=== PATIENT | female | born 1970 | race Caucasian/White ===

== ENCOUNTER 2021-02-05 03:11 | Inpatient (IN) | payer SELFPAY ==
[~2021-02-05] VITALS: Ht 160 cm; Wt 73.1 kg
[2021-02-05] MEDS ORDERED: ALBUTEROL (0.083%) 2.5MG/3ML NEB HHN STA (03:31)
[2021-02-05] MEDS ORDERED: METHYLPREDNISOLONE SOD SUCC 125 MG/2 ML VIAL IV STA (03:31)
[2021-02-05] MEDS ORDERED: IPRATROPIUM BROMIDE (0.02%) 0.5MG/2.5ML NEB HHN STA (03:31)
[2021-02-05] MEDS ORDERED: MAGNESIUM 2 G PREMIX 50 ML IV STA (03:31)
[2021-02-05 04:08] LABS: HEMATOCRIT 45.3 % (36.0-48.0); HEMOGLOBIN 15.3 g/dL (12.0-16.0); MEAN CORPUSCULAR VOLUME 91.3 fL (81.0-99.0); PLATELET 311 x1000/uL (130-400); RED BLOOD CELL COUNT 4.95 mill/uL (4.2-5.4); RED CELL DISTRIBUTION WIDTH 14.6 % (11.6-14.6)
[2021-02-05 04:16] LABS: CHLORIDE 105 mEq/L (98-107)
[2021-02-05] MEDS ORDERED: MAGNESIUM/ALUMINUM HYDROXIDE/SIMETHICONE 30ML UDC PO PRN (07:45)
[2021-02-05] MEDS ORDERED: DOCUSATE SODIUM 100MG CAPSULE PO PRN (07:45)
[2021-02-05] MEDS ORDERED: CLONIDINE 0.1MG TABLET PO PRN (07:45)
[2021-02-05] MEDS ORDERED: IPRATROPIUM/ALBUTEROL 0.5-3(2.5)MG/3ML NEB NEB PRN (07:45)
[2021-02-05] MEDS ORDERED: DEXTROSE 50% WATER 50ML SYRINGE IV PRN (07:45)
[2021-02-05] MEDS ORDERED: ACETAMINOPHEN 325MG TABLET PO PRN ×2 (07:45)
[2021-02-05] MEDS ORDERED: ONDANSETRON HCL 4MG/2ML INJ IV PRN (07:45)
[2021-02-05 07:57] LABS: TOTAL IRON BINDING CAPACITY 369 ug/dL (250-450)
[2021-02-05] MEDS ORDERED: NITROGLYCERIN 0.4MG TABLET SL SL PRN (08:00)
[2021-02-05 08:13] LABS: FOLIC ACID (FOLATE) SERUM 17.4 ng/mL (>5.38)
[2021-02-05 09:00] VITALS: BP 141/83
[2021-02-05] MEDS ORDERED: LEVOFLOXACIN 500MG PREMIX 100 ML IV SCH (09:00)
[2021-02-05] MEDS: IPRATROPIUM/ALBUTEROL 0.5-3(2.5)MG/3ML NEB HHN SCH ×4 (09:09→21:35)
[2021-02-05] MEDS: ASPIRIN 325MG EC TABLET PO SCH (09:34)
[2021-02-05] MEDS: FAMOTIDINE 20MG TABLET PO SCH ×2 (09:35→20:34)
[2021-02-05] MEDS: ENOXAPARIN 40MG/0.4ML SYR SUBCUT SCH (09:36)
[2021-02-05] MEDS: INSULIN LISPRO 100 UNITS/ML SUBCUT SCH ×4 (09:46→20:35)
[2021-02-05 10:30] VITALS: BP 141/83
[2021-02-05] MEDS: BLOOD SUGAR DIAGNOSTIC STRIP TEST SCH ×3 (11:40→20:34)
[2021-02-05] MEDS ORDERED: ALBU2.5V13 NEB (11:53)
[2021-02-05] MEDS ORDERED: AZIT250T12 PO (11:53)
[2021-02-05] MEDS ORDERED: MONT10TA21 MT (11:53)
[2021-02-05] MEDS ORDERED: PRED10TA MT (11:53)
[2021-02-05] MEDS ORDERED: HYDR10TA34 MT (11:53)
[2021-02-05] MEDS ORDERED: ALBU6.7H15 INH (11:53)
[2021-02-05] MEDS ORDERED: ACET-2708 MT (11:53)
[2021-02-05] MEDS: DILTIAZEM HCL 30MG TABLET PO SCH ×2 (13:21→18:22)
[2021-02-05] MEDS: METHYLPREDNISOLONE SOD SUCC 125 MG/2 ML VIAL IV SCH ×2 (14:57→20:34)
[2021-02-05 16:52] VITALS: BP 128/66
[2021-02-05 17:53] LABS: CREATINE KINASE 296 IU/L (26-192)
[2021-02-05 17:54] LABS: CREATINE KINASE MB FRACTION 6.6 ng/mL (0.5-3.6)
[2021-02-05 20:00] VITALS: BP 132/81
[2021-02-05] MEDS: GUAIFENESIN 600MG ER TABLET PO SCH (20:34)
[2021-02-05] MEDS ORDERED: ZOLPIDEM TARTRATE 5MG TABLET PO PRN (21:00)
[2021-02-06] VITALS: BP 109/69
[2021-02-06 00:38] LABS: CREATINE KINASE 237 IU/L (26-192)
[2021-02-06 00:39] LABS: CREATINE KINASE MB FRACTION 6.1 ng/mL (0.5-3.6)
[2021-02-06] MEDS: IPRATROPIUM/ALBUTEROL 0.5-3(2.5)MG/3ML NEB HHN SCH ×6 (00:56→21:21)
[2021-02-06 04:00] VITALS: BP 143/65
[2021-02-06] MEDS: DILTIAZEM HCL 30MG TABLET PO SCH ×4 (04:59→17:17)
[2021-02-06] MEDS: METHYLPREDNISOLONE SOD SUCC 125 MG/2 ML VIAL IV SCH ×3 (05:02→21:28)
[2021-02-06] MEDS: INSULIN LISPRO 100 UNITS/ML SUBCUT SCH ×4 (06:10→21:27)
[2021-02-06] MEDS: BLOOD SUGAR DIAGNOSTIC STRIP TEST SCH ×4 (06:10→21:08)
[2021-02-06 07:03] LABS: HEMATOCRIT. 43.1 % (36.0-48.0); HEMOGLOBIN. 14.6 g/dL (12.0-16.0); MEAN CORPUSCULAR HEMOGLOBIN 31.2 pg (28.0-32.0); MEAN CORPUSCULAR VOLUME 91.9 fL (81.0-99.0); MEAN PLATELET VOLUME 7.1 fl (7.4-10.4); PLATELET 328 x1000/uL (130-400); RED BLOOD CELL COUNT 4.69 mill/uL (4.2-5.4); RED CELL DISTRIBUTION WIDTH 14.8 % (11.6-14.6)
[2021-02-06 07:31] LABS: CHLORIDE 108 mEq/L (98-107)
[2021-02-06 08:00] VITALS: BP 129/67
[2021-02-06] MEDS: ASPIRIN 325MG EC TABLET PO SCH (09:11)
[2021-02-06] MEDS: GUAIFENESIN 600MG ER TABLET PO SCH ×2 (09:11→21:27)
[2021-02-06] MEDS: FAMOTIDINE 20MG TABLET PO SCH (09:11)
[2021-02-06] MEDS: ENOXAPARIN 40MG/0.4ML SYR SUBCUT SCH (09:12)
[2021-02-06] MEDS: LEVOFLOXACIN 500MG PREMIX 100 ML IV SCH (11:46)
[2021-02-06 12:00] VITALS: BP 138/76
[2021-02-06 12:30] LABS: PLATELET ESTIMATE NORMAL
[2021-02-06 16:00] VITALS: BP 124/70
[2021-02-06] MEDS: GUAIFENESIN 200MG/10ML SUGAR FREE UDC PO PRN (17:42)
[2021-02-06 20:00] VITALS: BP 116/69
[2021-02-07] VITALS (7 sets, daily range): BP systolic 104–142; BP diastolic 57–76
[2021-02-07] MEDS: IPRATROPIUM/ALBUTEROL 0.5-3(2.5)MG/3ML NEB HHN SCH ×6 (00:52→21:06)
[2021-02-07] MEDS: FAMOTIDINE 20MG TABLET PO SCH ×3 (00:56→20:57)
[2021-02-07] MEDS: GUAIFENESIN 200MG/10ML SUGAR FREE UDC PO PRN (01:10)
[2021-02-07] MEDS: DILTIAZEM HCL 30MG TABLET PO SCH ×5 (01:14→23:32)
[2021-02-07] MEDS: BLOOD SUGAR DIAGNOSTIC STRIP TEST SCH ×4 (05:51→20:59)
[2021-02-07] MEDS: METHYLPREDNISOLONE SOD SUCC 125 MG/2 ML VIAL IV SCH ×3 (06:18→20:58)
[2021-02-07] MEDS: INSULIN LISPRO 100 UNITS/ML SUBCUT SCH ×4 (06:21→20:58)
[2021-02-07 06:42] LABS: PROTHROMBIN TIME 10.4 sec (9.6-11.0)
[2021-02-07] MEDS: ASPIRIN 325MG EC TABLET PO SCH (08:22)
[2021-02-07] MEDS: GUAIFENESIN 600MG ER TABLET PO SCH ×2 (08:22→20:56)
[2021-02-07] MEDS: ENOXAPARIN 40MG/0.4ML SYR SUBCUT SCH (08:23)
[2021-02-07] MEDS: LEVOFLOXACIN 500MG PREMIX 100 ML IV SCH (11:47)
[2021-02-08] VITALS: BP 124/66
[2021-02-08] MEDS: IPRATROPIUM/ALBUTEROL 0.5-3(2.5)MG/3ML NEB HHN SCH ×4 (00:46→12:58)
[2021-02-08 04:00] VITALS: BP 135/87
[2021-02-08] MEDS: METHYLPREDNISOLONE SOD SUCC 125 MG/2 ML VIAL IV SCH ×2 (06:05→14:59)
[2021-02-08] MEDS: DILTIAZEM HCL 30MG TABLET PO SCH ×2 (06:05→12:22)
[2021-02-08] MEDS: INSULIN LISPRO 100 UNITS/ML SUBCUT SCH ×2 (06:06→12:23)
[2021-02-08] MEDS: BLOOD SUGAR DIAGNOSTIC STRIP TEST SCH ×2 (06:08→12:24)
[2021-02-08 08:00] VITALS: BP 138/89
[2021-02-08] MEDS: ENOXAPARIN 40MG/0.4ML SYR SUBCUT SCH (08:29)
[2021-02-08] MEDS: GUAIFENESIN 600MG ER TABLET PO SCH (08:29)
[2021-02-08] MEDS: ASPIRIN 325MG EC TABLET PO SCH (08:29)
[2021-02-08] MEDS: FAMOTIDINE 20MG TABLET PO SCH (08:29)
[2021-02-08] MEDS: LEVOFLOXACIN 500MG PREMIX 100 ML IV SCH (10:50)
[2021-02-08 13:46] VITALS: BP 138/87
== END 2021-02-08 15:40 | disposition home or self-care (01) | DRG 133 ==
LOC: ER 03:11 → 7EST 04:57
PROVIDERS: ADMIT Internal Medicine; ATTEND Internal Medicine
DX: J96.00 Acute respiratory failure, unspecified whether with hypoxia or hypercapnia (principal); J45.901 Unspecified asthma with (acute) exacerbation; E11.9 Type 2 diabetes mellitus without complications; Z20.822 Contact with and (suspected) exposure to COVID-19; Z88.8 Allergy status to other drugs, medicaments and biological substances; Z79.899 Other long term (current) drug therapy; Z79.1 Long term (current) use of non-steroidal anti-inflammatories (NSAID)
CPT/HCPCS: 36415; 71045; 80053; 82550; 82553; 82607; 82746; 82962; 83036; 83540; 83550; 83735; 84100; 84484; 85025; 85027; 87426; 93005; 93970; 94640; 94644; 99285; C1893; J1650; J1815; J1956; J2930; J7040